=== PATIENT | male | born 1935 | race Caucasian/White ===

== ENCOUNTER 2024-09-17 05:53 | Day surgery (SDC) | payer MEDICARE, SELFPAY ==
[2024-09-10 10:05] VITALS: BMI 38.5
--- NOTE | 2024-09-10 11:00 | HPS.HSE ---
Family Physician
-
Family Physician: Nicolás Dumont
Chief Complaint
-
Persistent atrial fibrillation.
History of Present Illness
The patient is an 89 -year-old male presenting today for persistent atrial fibrillation. He was diagnosed with atrial fibrillation approximately 7 months ago at his primary care physician's office. The patient reports dyspnea, most notably
with exertion, and fatigue secondary to this diagnosis. He previously underwent a cardioversion in January 2024 for his arrhythmia. Unfortunately, his arrhythmia reoccurred soon after his procedure. He is on current pharmacological therapy with
Metoprolol Succinate. He reports he has been compliant with Eliquis for oral anticoagulation. He notes that his current symptoms greatly interfere with his activities of daily living and overall impact his quality of life. He is interested in
pursuing pulmonary vein isolation for further arrhythmia management. He denies any current complaints today such as chest pain, shortness of breath at rest, nausea, vomiting, diarrhea, lightheadedness, dizziness, cough, sore throat, or fever.
Medical History
Past Medical History
Past Medical History: Reports Other
Additional Past Medical History:
1. Persistent atrial fibrillation, status post cardioversion 01/2024; pharmacological therapy with Metoprolol Succinate and oral anticoagulation with Eliquis.
2. Hypertension.
3. Dyslipidemia.
4. Venous varicosities with insufficiency.
5. Obstructive sleep apnea, non-compliant with device.
6. Renal insufficiency per pre-operative labs.
7. GERD.
8. Colon polyps.
9. Remote GI ulcers with bleed.
10. Spinal stenosis with neurogenic claudication.
11. Osteoarthritis, status post left total knee arthroplasty 2016.
12. Prostate cancer, status post remote prostatectomy.
13. Melanoma, 2015, status post Mohs.
14. Small cell B-cell lymphoma, undergoing observation.
15. 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
16. Lyme disease.
17. Obesity, BMI 38.4.
18. Remote history of tobacco abuse.
Past Surgical History: Reports Other
Additional Past Surgical History:
1. Cardioversion.
2. Left total knee arthroplasty.
3. Throat polyp excision.
4. Childhood swollen gland surgery.
5. Bilateral cataract extraction.
6. Mohs.
7. Colonoscopy.
Social History
Tobacco: Former Smoker (He is a former 1 pack per ay cigarette smoker who quit tobacco altogether remotely. )
Alcohol: Other (Social. )
Living: Alone (in a 1 story home. )
Family History
Family History: Not pertinent
Allergies / Home Medications
Allergy/Medication List:
Home medications:
1. Amoxicillin 2,000 mg daily as needed.
2. Apixaban 5 mg p.o. twice a day.
3. Ascorbic acid 100 mg p.o. daily.
4. Cholecalciferol 5 mcg p.o. daily.
5. Furosemide 40 mg p.o. at 1 PM.
6. Metoprolol Succinate 12.5 mg p.o. at 1 PM.
7. Omeprazole 20 mg p.o. at bedtime.
8. Rosuvastatin 10 mg p.o. at bedtime.
9. Vitamin B complex 1 capsule p.o. daily.
Allergies: No known allergies.
Review of Systems
-
A 12 point ROS was completed and negative except as noted: Yes
Physical Exam
Vital Signs
Blood pressure 128/77. Heart rate 88. Respirations 18. Pulse ox 94%, increasing to 97% with encouraged deep breathing.
Height 5 feet, 7.5 inches. Weight 113 kg. BMI 38.4.
Physical Exam
General: Well Developed, Well Nourished and No Apparent Distress
HEENT: NormoCephalic, Moist mucous membranes, Atraumatic and PERRLA
Respiratory: Clear
Cardiac: Irregular Rhythm
GI: Soft, Non Tender, Non Distended and Other (Obese. )
Musculoskeletal: Normal Gait & Station and Other (+1 non-pitting edema, venous stasis noted bilaterally. )
Skin: Warm and Dry
Neuro: AO x 3 and Nonfocal/grossly intact
Laboratory Results
-
DIAGNOSTIC STUDIES as of 09/10/2023: White blood cell count 8.0. Hemoglobin 15.8. Platelet count 270,000. PT 18.2. INR 1.49. Sodium 141. Potassium 4.6. BUN 24. Creatinine 1.3. Glucose 105. Calcium 9.2. Magnesium 2.2. AST 25. ALT 21. Albumin 4.2.
Type and screen O positive.
EKG 09/10/2024: Atrial fibrillation. Left axis deviation. Inferior infarct, age undetermined.
Chest CT 09/10/2024: Normal, conventional pulmonary venous anatomy. No left atrial filling defect/thrombus is identified. Enlarged left axillary lymph node. While this could be reactive, the size is concerning for a metastatic lymph node. Severe
coronary artery calcifications. Small patchy opacities in the left greater than right upper lobe, suspicious for mild pneumonitis.
Echocardiogram 02/20/2024: Ejection fraction is 55-60%. Diastolic dysfunction. Mildly dilated left atrium. No significant valvular disease.
Nuclear stress test 04/30/2024: Normal perfusion study. No evidence of ischemia or infarction.
Impression/Plan
-
IMPRESSION/PLAN:
1. Persistent atrial fibrillation: The patient will proceed with pulmonary vein isolation with Dr. Syed Acevedo on 09/17/2024. The benefits and risks of the procedure have been explained to the patient. The patient understands these risks and
wishes to proceed. He will not be required to undergo a pre-procedural transesophageal echocardiogram as he has been compliant with his home oral anticoagulation. He is aware to continue Eliquis uninterrupted prior to his procedure. He will take no
medications the morning of his ablation.
2. Abnormal chest CT: Abnormalities discussed with Dr. Acevedo pre-operatively. Given the patient's history of small cell B-cell lymphoma, undergoing current observation, and recent radiation for squamous cell carcinoma of the right vocal cord,
these results are not entirely unexpected. The patient can proceed as planned on 09/17/2024. A copy of his chest CT will be forwarded to his primary care physician, Dr. Nicolás Dumont.
[2024-09-17] VITALS (30 sets, daily range): BP systolic 80–140; BP diastolic 56–105; BMI 38.5
--- NOTE | 2024-09-17 08:00 | ITS.CL.ABL ---
Game Programmer - Ablation
Ablation
Procedure Report:
ELECTROPHYSIOLOGIC STUDY AND POSSIBLE ABLATION
DATE: 09/17/24
Primary Care Provider: Dr Nicolás Castle
Primary Meter Attendant: Dr Anson Larose
INDICATION:
Symptomatic Atrial Fibrillation.
Persistent
HISTORY: See H and P.
Symptomatic AF, poorly controlled with attempted medical therapy
HAS-BLED: 2
Age
Abnormal Renal Function
CHADSVASc:
HTN
Age
PRESENTING RHYTHM: AF
HISTORY: See H and P.
Symptomatic AF, poorly controlled with attempted medical therapy.
ANTICOAGULATION: Apixaban 5 mg twice daily
'TIME-OUT': called and confirmed.
SEDATION/ANESTHESIA: provided via the anesthesia department using general anesthesia.
PROCEDURE:
Ultrasound Guidance with real-time visualization of needle insertion and vessel patency performed by ms for femoral venous Vascular Access. Images were taken and saved for the patient's permanent record. Imaging findings typical femoral venous
anatomy. Direct visualization of needle puncture into the femoral vein was observed and recorded.
A decapolar CS catheter was placed within the CS for mapping and pacing.
The intracardiac ultrasound catheter was positioned in the RA for continuous intracardiac ultrasound imaging.
Heparin bolus and infusion to target ACT at 300 -350 seconds was administered. Transseptal puncture was performed. This entailed advancing a sheath with dilator into the superior vena cava and withdrawing both (monitoring intracardiac ultrasound,
fluoroscopy and tip pressure) with the tip oriented toward the atrial septum. The fossa ovalis was engaged (indicated by sudden displacement of the sheath tip as well as tenting of the fossa seen on intracardiac ultrasound).
The Abine transseptal system was used. Left atrial catheter position was confirmed by echocardiographic imaging and fluoroscopy followed by RF delivery using the FiPath system resulting in successful LA access with pressure monitoring
demonstrating LA pressure waveforms (LA mean pressure 7 mm Hg). The sheath was advanced over the dilator and positioned in the left atrium.
The Flypeeps multipolar mapping catheter was initially positioned through the transseptal sheath for high density mapping.
Geometry and voltage mapping was performed using the Villaseñor multipolar grid catheter. Ensite-X was utilized for three-dimensional electroanatomical mapping.
A 3-D map was created using Ensite-X in Voxel mode. A 3-D reconstructed CT image was compared to the 3-D Navex map to assist in anatomic evaluation, mapping and ablation.
The Scan & Target catheter and system was used for cardiac ablation. Catheter positioning was guided and confirmed using both I.C.E. and fluoroscopy.
PV isolation approach was used to electrically isolate each PV ostia (LSPV, LIPV, RSPV, RIPV).
Additional energy applications/additional ablation set was required to accomplish wide area circumferential ablation around each of the pulmonary vein sets and additionally ablation to accomplish LA posterior wall ablation.
Remapping with the Villaseñor multipolar grid catheter found that all PVPs were eliminated at each vein demonstrating entrance block. Also pacing from the multipolar mapping catheter around the the circumference of the ostia was performed at 10 ma and
2.0 msec output to assess for exit block. This demonstrated electrical isolation at each of the pulmonary vein ostia (LSPV, LIPV, RSPV, RIPV). There is also entrance and exit block at the LA posterior wall.
Programmed electrostimulation failed to induce any sustained arrhythmias.
I.C.E. :
Pre-Ablation Post-Ablation
LVEF: 55% 55%
WMA: None none
Pericardial effusion: None none
COMPLICATIONS:
None
SUMMARY:
- Mapping and ablation to isolate the PVs
- Additional AF ablation set after PVI.
- 3-D Electroanatomical Mapping
- Intracardiac Ultrasound
- Ultrasound guidance for vascular access
Post ablation, I discussed today's findings and results with the patient's daughter, Arleen.
RECOMMENDATIONS:
- Observe in monitored bed.
- Maintain oral anticoagulation.
- Continue metoprolol succinate 25 mg daily
- Continue cardiovascular care with Dr Larose (patient's daughter tells me he has a visit scheduled for next month.)
Copy to:
Dr Nicolás Castle
Dr Anson Larose
[2024-09-17 09:00] LABS: ACT-LR - POC 361 Seconds (116-155)
[2024-09-17 09:13] LABS: ACT-LR - POC 340 Seconds (116-155)
[2024-09-17 09:32] LABS: ACT-LR - POC 340 Seconds (116-155)
[2024-09-17] MEDS: TYLENOL 650 MG PO (16:35)
--- NOTE | 2024-09-17 18:27 | PTCARENOTE ---
Pt received post ablation. Pt reported tenderness in right groin site but dressing was dry and intact, no sign of bleeding or hematoma, figure of eight suture removed prior to his arrival on IVU. Pt OOB with minimal assistance, steady gait, voiding
without difficulty. Telemetry shows sinus rhythm.
[2024-09-17] MEDS: ELIQUIS 5 MG PO (20:08)
[2024-09-17] MEDS: PROTONIX 40 MG PO (22:30)
[2024-09-17] MEDS: CRESTOR 10 MG PO (22:30)
--- NOTE | 2024-09-17 22:44 | PTCARENOTE ---
assumed care of patient at the change of shift. AAOx3. ambulating to the BR-steady on his feet. R groin site-CDI. + doppler pulse/LE edema noted. SR with a first degree AVB 70s-80s. bp stable. patient denies any pain. reviewed plan of care and
verbalized understanding. call banuelos within reach. calls appropriately.
[2024-09-18 03:47] VITALS: BP 122/81
[2024-09-18 03:53] VITALS: BMI 38.0
--- NOTE | 2024-09-18 04:05 | PTCARENOTE ---
patient slept well overnight. SR on tele 70s-80s. bp stable. R groin intact.
[2024-09-18 04:27] LABS: Hematocrit 43.2 % (39.0-52.0); Hemoglobin 14.5 g/dL (13.0-18.0); Mean Corp Hgb Conc. 33.6 g/dL (33.0-37.0); Mean Corpuscular Hgb 28.2 pg (27.0-31.0); Mean Corpuscular Volume 83.9 fL (80.0-94.0); Mean Platelet Volume 9.3 fL (7.4-10.4); Platelet Count 256 10^3/uL (130-400); Red Blood Cell Count 5.15 10^6/uL (4.70-6.10); Red Cell Dist. Width 14.3 % (11.5-14.5); White Blood Cell Count 11.7 10^3/uL (4.8-10.8)
[2024-09-18 04:41] LABS: Blood Urea Nitrogen 25 mg/dl (9-20); Carbon Dioxide 27 mmol/L (22-30); Chloride 104 mmol/L (98-107); Estimated Creatinine Clearance 60 ml/min; Glucose 127 mg/dl (70-99); Magnesium 2.3 mg/dl (1.6-2.3); Potassium 4.7 mmol/L (3.5-5.1); Sodium 139 mmol/L (135-145); eGFR > 60.00
[2024-09-18 07:57] VITALS: BP 151/139
[2024-09-18 07:58] VITALS: BP 113/66
[2024-09-18 08:06] VITALS: BP 113/66
[2024-09-18] MEDS: TOPROL XL 25 MG PO (08:12)
[2024-09-18] MEDS: ELIQUIS 5 MG PO (08:12)
--- NOTE | 2024-09-18 08:37 | W.PN.CARDCBS ---
Addendum entered and electronically signed by Franklin Hines MD 09/18/24 09:38:
Agree with BARBECUE COOK note and assessment
Previous BARBECUE COOK plan
Patient seen with [id number] time
Exam:
Sinus rhythm on telemetry
Alert and x 3
JVP 6
No acute distress
Cor regular
Nonfocal neurologically
Remainder of the exam as per BARBECUE COOK note
Primary Care Provider: Dr Nicolás Castle
Primary Center Director: Dr Anson Larose
Impression:
Symptomatic persistent Atrial Fibrillation.
post PVI/PFA 09/17/24
HTN
Hyperlipidemia
GERD
YASHIRA non compliant with CPAP
h/o UGIB
Prostate cancer post prostatectomy
vocal cord cancer
Plan:
Stable post ablation
tele SR 1 deg AVB
OAC Eliquis
Continue metoprolol xl 25 daily
f/u Dr. Larose in 1-2 mo
stable for d/c home
Original Note:
Today's Communication / Plan
-
post afib ablation
stable for d/c home
Impression / Plan
-
Primary Care Provider: Dr Nicolás Castle
Primary Center Director: Dr Anson Larose
Impression:
Symptomatic persistent Atrial Fibrillation.
post PVI/PFA 09/17/24
HTN
Hyperlipidemia
GERD
YASHIRA non compliant with CPAP
h/o UGIB
Prostate cancer post prostatectomy
vocal cord cancer
Plan:
post ablation feels well
groin stable
tele SR 1 deg AVB, no ectopy
OAC Eliquis
Continue metoprolol xl 25 daily
Activity restrictions reviewed
f/u Dr. Larose in 1-2 mo
stable for d/c home
Progress Note - Center Director
Subjective
Date of Service: September 18, 2024
denies cp, sob
Objective
Labs:
09/18/24 03:53
09/18/24 03:53
Labs
Hgb 14.5 g/dL (13.0-18.0) 09/18/24 03:53
Hct 43.2 % (39.0-52.0) 09/18/24 03:53
Plt Count 256 10^3/uL (130-400) 09/18/24 03:53
Sodium 139 mmol/L (135-145) 09/18/24 03:53
Potassium 4.7 mmol/L (3.5-5.1) 09/18/24 03:53
BUN 25 mg/dl (9-20) H 09/18/24 03:53
Creatinine 1.0 mg/dL (0.7-1.3) 09/18/24 03:53
Glucose 127 mg/dl (70-99) H 09/18/24 03:53
Vital Signs and I&O:
Vital Signs
Temp Pulse Resp BP Pulse Ox
98 F 74 20 113/66 97
09/18/24 07:52 09/18/24 07:56 09/18/24 07:52 09/18/24 08:06 09/18/24 08:08
Vital Signs
Temp Pulse Resp BP Pulse Ox
98 F 74 20 113/66 97
09/18/24 07:52 09/18/24 07:56 09/18/24 07:52 09/18/24 08:06 09/18/24 08:08
Intake & Output
09/16/24 09/17/24 09/18/24 09/19/24
06:59 06:59 06:59 06:59
Intake Total 370 / 370
Balance 370 / 370
Physical Exam
Physical Exam
NAD< AOx3
S1, S2, RRR
CTAB, non labored,, no wheeze
SNTND bsx4
R fem c/d/i no HT, soft
--- NOTE | 2024-09-18 11:15 | PTCARENOTE ---
Pt seen by Vida Washington NP. He denies any discomfort. telemetry shows sinus rhythm with first degree AV block. Telemetry and IV device removed. Discharge instructions reviewed with pt regarding activity and driving restrictions, wound care, medications
and their possible side effects, reporting cares and concerns and follow up appt's. Very good understanding verbalized. Pt escorted out via wheelchair and discharged to home.
--- NOTE | 2024-09-18 12:32 | CM ---
CM following for DC planning needs.
Met w/ patient at bedside to complete initial assessment.
Pt. reports that he feels well and is prepared for DC today. Offers no concerns or needs at this time.
Pt. is completely functionally indep. prior to admission and currently.
Plan is for home, no needs.
--- NOTE | 2024-09-18 14:59 | W.DS.TRANS ---
DC Summary - Cyber Policy And Strategy Planner
-
Discharge Instructions:
Discharge Diagnosis/Procedures Atrial fibrillation post ablation
Diet Low Cholesterol
Driving Restrictions No driving for 24 hours
Instructions:
Stand-Alone Forms: DC Instructions- Cath/EP Lab
Changes to Home Medications: No
Discharge Medications:
DC Medications w/original date entered in [employer]
amoxicillin 500 mg tablet 2,000 mg PO PRN PRN dental procedure 09/08/24
apixaban 5 mg tablet (Eliquis) 5 mg PO BID 09/08/24
ascorbic acid (vitamin C) 100 mg tablet (Vitamin C) 100 mg PO DAILY 09/08/24
cholecalciferol (vitamin D3) 10 mcg (400 unit) tablet (Vitamin D3) 5 mcg PO DAILY 09/08/24
furosemide 40 mg tablet 40 mg PO 1300 09/08/24
metoprolol succinate 25 mg tablet,extended release 24 hr 25 mg PO DAILY 09/08/24
omeprazole 20 mg capsule,delayed release 20 mg PO HS 09/08/24
rosuvastatin 10 mg tablet (Crestor) 10 mg PO HS 09/08/24
vitamin B complex 1 cap PO DAILY 09/08/24
Home Medication Changes
Pending Results: No
== END 2024-09-18 11:15 | disposition home or self-care (01) ==
LOC: CATH 05:53
PROVIDERS: Nurse Practitioner Adult Health; ATTENDING PHYSICIAN Internal Medicine Cardiovascular Disease; FAMILY PHYSICIAN Family Medicine
DX: I48.19 Other persistent atrial fibrillation (principal); R06.00 Dyspnea, unspecified; Z79.899 Other long term (current) drug therapy; I10 Essential (primary) hypertension; E78.5 Hyperlipidemia, unspecified; I83.90 Asymptomatic varicose veins of unspecified lower extremity; N28.9 Disorder of kidney and ureter, unspecified; K21.9 Gastro-esophageal reflux disease without esophagitis; Z86.0100 Personal history of colon polyps, unspecified; Z87.11 Personal history of peptic ulcer disease; M48.00 Spinal stenosis, site unspecified; M19.90 Unspecified osteoarthritis, unspecified site; Z85.820 Personal history of malignant melanoma of skin; Z85.21 Personal history of malignant neoplasm of larynx; C83.00 Small cell B-cell lymphoma, unspecified site; Z92.3 Personal history of irradiation; Z86.19 Personal history of other infectious and parasitic diseases; Z85.46 Personal history of malignant neoplasm of prostate; E66.9 Obesity, unspecified; Z68.38 Body mass index [BMI] 38.0-38.9, adult; Z87.891 Personal history of nicotine dependence; Z96.652 Presence of left artificial knee joint; Z79.01 Long term (current) use of anticoagulants; I44.0 Atrioventricular block, first degree; Z91.199 Patient's noncompliance with other medical treatment and regimen due to unspecified reason; G47.33 Obstructive sleep apnea (adult) (pediatric); Z90.79 Acquired absence of other genital organ(s); I48.92 Unspecified atrial flutter
CPT/HCPCS: C1769; C1730; C1892; 76937; 80048; 83735; 85027; 85347; 86900; 86901; 93005; 93656; 93657; C1732; C1733; C1766; C1894